=== PATIENT | female | born 1985 | race Caucasian/White ===

== ENCOUNTER → 2024-11-13 08:35 | Outpatient (REF) | payer OTHER, SELFPAY | LOC: HWRAD 08:35 | PROVIDERS: ATTENDING PHYSICIAN Obstetrics & Gynecology; FAMILY PHYSICIAN Physician Assistant Medical | DX: N92.0 Excessive and frequent menstruation with regular cycle (principal) | CPT/HCPCS: 76830; 76856 ==

== ENCOUNTER 2024-12-25 06:04 | Day surgery (SDC) | payer OTHER, SELFPAY ==
[2024-12-12 11:21] LABS: % Basophils 0.8 % (0-2); % Eosinophils 0.6 % (0-6); % Immature Granulocytes 0.2 % (0-0.5); % Lymphocytes 32.6 % (20.5-51.1); % Monocytes 7.3 % (1.7-9.3); % Neutrophils 58.5 % (42.2-75.2); Absolute Basophils 0.1 10^3/uL (0-0.2); Absolute Lymphocytes 2.1 10^3/uL (1.2-3.4); Absolute Monocytes 0.5 10^3/uL (0.1-0.6); Absolute Neutrophils 3.9 10^3/uL (1.4-6.5); Hematocrit 41.3 % (37.0-47.0); Hemoglobin 14.6 g/dL (12.0-16.0); Mean Corp Hgb Conc. 35.4 g/dL (33.0-37.0); Mean Corpuscular Volume 93.2 fL (81.0-99.0); Mean Platelet Volume 10.9 fL (7.4-10.4); Nucleated Red Blood Cells % 0 %; Platelet Count 242 10^3/uL (130-400); Red Blood Cell Count 4.43 10^6/uL (4.20-5.40); Red Cell Dist. Width 11.6 % (11.5-14.5); White Blood Cell Count 6.6 10^3/uL (4.8-10.8)
[2024-12-12 13:02] LABS: Blood Urea Nitrogen 15 mg/dl (7-17); Calcium 8.9 mg/dl (8.4-10.2); Carbon Dioxide 26 mmol/L (22-30); Chloride 108 mmol/L (98-107); Glucose 75 mg/dl (70-99); Potassium 4.5 mmol/L (3.5-5.1); Sodium 141 mmol/L (135-145); eGFR > 60.00
[2024-12-12 13:17] LABS: Beta HCG Quantitative < 2.39 mIU/ml
[2024-12-12 13:57] VITALS: BMI 25.9
[2024-12-25] VITALS (11 sets, daily range): BP systolic 89–98; BP diastolic 63–73; BMI 25.9
[2024-12-25] MEDS: NEURONTIN 300 MG PO (06:33)
[2024-12-25] MEDS: TYLENOL 1000 MG PO (06:33)
[2024-12-25] MEDS: NORMOSOL-R/PLASMALYTE-A 1000 IV (06:34)
--- NOTE | 2024-12-25 07:44 | W.IMMPOSTOP ---
Surgical Immed Post Op Note
-
Primary Surgeon: Mabel Wilson DO
Assisting Surgeon: none
Pre-op Diagnosis: Menorrhagia
Post-op Diagnosis: same
Procedure Performed: Hysteroscopy D&C
Anesthesia Type: General LMA Dr. Velazco
Specimen / Cultures: 1. Endocervical curettings 2. Endometrial curettings
Estimated Blood Loss: 1 mL
Complications: None
Operative Findings: Uterus sounded to 7 cm, bilateral tubal ostia visualized. Normal-appearing endometrial cavity. No evidence of polyp, tumor, mass.
Fluid deficit: 250ml NSS
Counts correct x 2.
--- NOTE | 2024-12-25 08:02 | SUR.PHASEI ---
wakened with arrival to repeated name, when asked c/o some cramping, quickly back to sleep and continues to sleep.
== END 2024-12-25 09:05 | disposition home or self-care (01) ==
LOC: SDS 06:04
PROVIDERS: ATTENDING PHYSICIAN Obstetrics & Gynecology; FAMILY PHYSICIAN Physician Assistant Medical
DX: N72 Inflammatory disease of cervix uteri (principal); N92.0 Excessive and frequent menstruation with regular cycle
CPT/HCPCS: 58558; 88305; 36415; 80048; 84702; 85025; 86850; 86900; 86901

== ENCOUNTER → 2025-01-30 07:18 | Outpatient (REF) | payer OTHER, SELFPAY | LOC: HWRCS 07:18 | PROVIDERS: ATTENDING PHYSICIAN Physician Assistant Medical; FAMILY PHYSICIAN Physician Assistant Medical | DX: R00.2 Palpitations (principal) | CPT/HCPCS: 93306 ==

== ENCOUNTER → 2025-02-06 07:48 | Outpatient (REF) | payer OTHER, SELFPAY | LOC: RCS 07:48 | PROVIDERS: ATTENDING PHYSICIAN Physician Assistant Medical; FAMILY PHYSICIAN Physician Assistant Medical | DX: R00.0 Tachycardia, unspecified (principal); R00.2 Palpitations | CPT/HCPCS: 93017 ==

== ENCOUNTER 2025-03-23 09:41 | Emergency (ER) | payer OTHER, SELFPAY ==
[2025-03-23 09:48] VITALS: BP 135/75
--- NOTE | 2025-03-23 10:17 | ED.GENMED ---
History of Present Illness
General
Chief Complaint: Abdominal Symptoms
Source: patient
Exam Limitations: none
Time Seen by Provider: 03/23/25 10:02
History of Present Illness
History of Present Illness:
39-year-old female presents with 3 weeks worth of right-sided abdominal pain intermittent in nature sometimes sharp with nausea but no vomiting. She also has noticed a change in her bowel habits. She is having loose stools. Sometimes the pain is
made worse with eating sometimes not. She denies any blood in the stool. No fevers. Last menstrual cycle was 12 days ago. The pain started before and is persistent after her cycle. She does have a history of endometriosis.
Past History
Past History
ED Past Medical History: Other (Endometriosis, ovarian cyst)
ED Past Surgical History: Other (Laparoscopic surgery. LEEP procedure)
Social History
Tobacco: Non-smoker
Drug: None
Personal:
Living: with family
Employment: Employed
Family History
Family History: Other
Phy Exam
Physical Exam
Physical Exam:
General: Well-appearing female in no acute respiratory distress
HEENT: Normocephalic atraumatic heart: Regular rate and rhythm
Lungs: Clear no wheeze abdomen is soft tender to the right upper quadrant positive Hatfield sign mildly tender to the right mid to lower abdomen as well no costovertebral angle tenderness
Extremities: No cyanosis
Course
Orders/Labs/Results
Orders:
Orders
03/23/25 10:13
Ketorolac [Toradol] 15 mg IV NOW STA
Test Result ONCE
US Abdomen Complete/Upper Urgent
Comment:
Reason For Exam: ruq pain
03/23/25 11:16
Complete Blood Count/With Diff Urgent
Comprehensive Metabolic Panel Urgent
HCG, Serum Qualitative Screen Urgent
Lipase Urgent
Urinalysis Reflex To Culture Urgent
Date Specimen was Collected: 03/23/25
Time Specimen was Collected: 10:18
Urine Microscopic Reflex Cult Urgent
Urine Culture Urgent
ARLINE Source: U
Specimen Description:
Date Specimen was Collected: 03/23/25
Time Specimen was Collected: 10:18
03/23/25 11:24
CT Abd/pelvis W Iv Cont Urgent
Comment:
Reason For Exam: RLQ pain
Abnormal Lab Results
03/23/25
11:16
MCH 32.8 H pg
(27.0-31.0)
MPV 10.8 H fL
(7.4-10.4)
Chloride 110 H mmol/L
(98-107)
ALT 45 H U/L
(0-35)
Leukocyte Esterase Rfl 3+ A
(Negative)
Urine WBC (Reflex) 40-50 A /HPF
(0-5)
Urine Bacteria (Reflex) Moderate A
(Negative)
03/23/25 11:16
03/23/25 11:16
Vital Signs
Initial and Last Documented VS:
Initial Vital Signs
Temp Pulse Resp BP Pulse Ox
98.3 F 88 16 135/75 98
03/23/25 09:48 03/23/25 09:48 03/23/25 09:48 03/23/25 09:48 03/23/25 09:48
Last Documented Vital Signs
Temp Pulse Resp BP Pulse Ox
98.3 F 88 16 135/75 98
03/23/25 09:48 03/23/25 09:48 03/23/25 09:48 03/23/25 09:48 03/23/25 10:19
MDM/Problems Addressed
Differential Diagnosis Includes:
Abdominal pain. Consider biliary colic versus constipation versus colitis or appendicitis
Check labs including lipase and urinalysis pending as well. Ultrasound ordered. If unrevealing consider CT
*Pulse Oximetry
SaO2: 98
Oxygen Mode of Delivery: Room air
Patient hypoxic: no
*Critical Care Note
Total Time (30-74mins, 75-104mins- exclusive of procedures): Not Applicable
Update Note
Update Note:
Ultrasound negative for acute finding. I did order CT scan secondary to the ongoing pain with negative ultrasound. CT demonstrates 2 to 3 cm ovarian cyst with surrounding free fluid in the pelvis suggesting poss cyst rupture. This could be the
source of the patient's right sided pain. She is feeling somewhat improved after Toradol. Recommended ongoing ibuprofen for pain control and gynecology follow-up.
ED Attending Note
-
Portions of this chart may have been created with voice recognition software.� Occasional wrong word or��sound alike� substitutions may have occurred due to the inherent limitations of voice recognition software.
Discharge Plan
Departure
Patient Disposition: Home (Routine Discharge)
Date of Disposition: 03/23/25
Time of Disposition: 14:20
Patient with high blood pressure during this ER visit?: No
Discharge Problem:
Abdominal pain
Instructions: Ovarian cysts
Prescriptions:
No Action
Mounjaro 15 mg/0.5 mL Pen Injector
15 mg SC SA
Referrals:
Kristi Menon PA-C [Family Provider, Family Practice]
Activity Restrictions/Additional Instructions:
Continue with Motrin as needed for pain. Return here for worsening symptoms otherwise follow-up with your portainer operator for further evaluation
Interventions
Interventions:
*Risk Screen - Suicide Last Done: 03/23/25 09:48
*General Assessment Last Done: 03/23/25 11:30
*Neglect/Abuse Screening Last Done: 03/23/25 09:48
*ED- Fall Risk Assessment Last Done: 03/23/25 11:30
*ED COVID-19 Vaccine History Last Done: 03/23/25 11:30
FI-Yqyjqm-Dqyyahzjtw Assessment Last Done: 03/23/25 11:30
Discharge Date and Time
Print Language: BULGARIAN
[2025-03-23] MEDS: TORADOL 15 MG IV (11:18)
[2025-03-23 11:34] LABS: Hematocrit 42.1 % (37.0-47.0); Hemoglobin 14.7 g/dL (12.0-16.0); Mean Corp Hgb Conc. 34.9 g/dL (33.0-37.0); Mean Corpuscular Volume 94.0 fL (81.0-99.0); Nucleated Red Blood Cells % 0 %; Platelet Count 195 10^3/uL (130-400); Red Cell Dist. Width 12.3 % (11.5-14.5)
[2025-03-23 11:45] LABS: Urine Character Slightly Cloudy (Clear)
[2025-03-23 12:05] LABS: HCG, Serum Qualitative Screen Negative; Urine Squamous Cell >30 /LPF (Few)
[2025-03-23 12:07] LABS: ALT (SGPT) 45 U/L (0-35); AST (SGOT) 31 U/L (14-36); Albumin 3.9 g/dl (3.5-5.0); Alkaline Phosphatase 49 U/L (38-126); Blood Urea Nitrogen 13 mg/dl (7-17); Calcium 9.4 mg/dl (8.4-10.2); Carbon Dioxide 26 mmol/L (22-30); Chloride 110 mmol/L (98-107); Glucose 96 mg/dl (70-99); Lipase 65 U/L (23-300); Potassium 4.4 mmol/L (3.5-5.1); Sodium 139 mmol/L (135-145); Total Protein 6.6 g/dl (6.3-8.2); Urine Red Blood Cell None Seen /HPF (0-2); eGFR > 60.00
[2025-03-23 12:08] LABS: Urine White Cell 40-50 /HPF (0-5)
[2025-03-23 14:00] VITALS: BP 101/69
== END 2025-03-23 14:47 | disposition home or self-care (01) ==
LOC: EMR 09:41
PROVIDERS: Physician Assistant; EMERGENCY PHYSICIAN Emergency Medicine; FAMILY PHYSICIAN Physician Assistant Medical
DX: N83.11 Corpus luteum cyst of right ovary (principal); R10.9 Unspecified abdominal pain
CPT/HCPCS: 99284; 96374; 74177; 76700; 80053; 81003; 81015; 83690; 84703; 85025; 87086; Q9967